=== PATIENT | female | born 1985 | race Caucasian/White ===

== ENCOUNTER 2022-10-09 16:36 | Emergency (ER) | payer SELFPAY ==
[~2022-10-09] VITALS: Ht 157.5 cm; Wt 70.3 kg
[2022-10-09 16:46] VITALS: BP 136/79
--- NOTE | 2022-10-09 19:05 | NUR ---
Patient eloped from facility. ER DR. MONIQUE MAGALLANES notified.
== END 2022-10-09 19:05 | disposition left against medical advice (07) ==
LOC: ER 16:38
DX: Z53.21 Procedure and treatment not carried out due to patient leaving prior to being seen by health care provider (principal)

== ENCOUNTER 2022-12-04 00:46 | Inpatient (IN) | payer MEDICAID ==
[~2022-12-04] VITALS: Ht 157.5 cm; Wt 111.1 kg
[2022-12-04] VITALS (12 sets, daily range): BP systolic 104–137; BP diastolic 60–80
--- NOTE | 2022-12-04 01:05 | NUR ---
[id number] FROM HOME C/O SORE THROAT X45 MINS. PT A/OX4. TOLERATING R/A WELL WITH NO RESP DISTRESS. CONNECTED PT TO POX AND MONITOR.
--- NOTE | 2022-12-04 01:17 | NUR ---
COMMISSIONER PUBLIC WORKS AT PT'S BEDSIDE
[2022-12-04 01:36] LABS: BASOPHILS % (AUTO) 0.4 % (0.0-2.0); LYMPHOCYTES # (AUTO) 0.8 K/uL (0.8-4.8); LYMPHOCYTES % (AUTO) 23.4 % (20.0-44.0); MEAN CORPUSCULAR HGB CONC 27 g/dl (31.0-36.0); MEAN CORPUSCULAR VOLUME 60 fL (82-100); MONOCYTES # (AUTO) 0.3 K/uL (0.1-1.30); MONOCYTES % (AUTO) 7.7 % (2.0-12.0); NEUTROPHILS # (AUTO) 2.4 K/uL (1.8-8.9); NEUTROPHILS % (AUTO) 68.5 % (43.0-81.0); PLATELET COUNT (AUTO) 201 K/uL (150-450); WHITE BLOOD COUNT (AUTO) 3.5 K/uL (4.3-11.0)
[2022-12-04 01:49] LABS: CALCIUM, SERUM 8.6 mg/dL (8.5-10.1); POTASSIUM 3.6 mmol/L (3.5-5.1)
[2022-12-04 01:51] LABS: HEMATOCRIT 18 % (33-45); HEMOGLOBIN 4.8 g/dL (11.5-14.8)
--- NOTE | 2022-12-04 02:10 | NUR ---
COVID ANTIGEN SWAB COLLECTED AND SENT TO LAB
--- NOTE | 2022-12-04 02:10 | NUR ---
BLOOD TRANSFUSION CONSENT FORM SIGNED BY PT; VERBALIZES UNDERSTANDING.
--- NOTE | 2022-12-04 02:13 | NUR ---
LAC #20G S/L BLOOD COLLECTED AND SENT TO LAB
--- NOTE | 2022-12-04 02:18 | NUR ---
URINE COLLECTED AND SENT TO LAB
[2022-12-04] MEDS ORDERED: LIDOCAINE VISCOUS 2% UD 15 ML UDC ONE ×2 (03:47)
[2022-12-04] MEDS ORDERED: LIDOCAINE VISCOUS 2% UD 15 ML UDC MM ONE (04:00)
[2022-12-04] MEDS ORDERED: MAGNESIUM HYDROXIDE 30 ML UDC PO PRN (04:00)
[2022-12-04] MEDS ORDERED: Z GUARD REMEDY 4 OZ OINT TP PRN (04:00)
[2022-12-04] MEDS ORDERED: HYDROCODONE/APAP 10/325MG TABLET PO PRN (04:00)
[2022-12-04] MEDS ORDERED: MAG HYDROX/AL HYDROX/SIMETH 30 ML UDC PO ONE (04:00)
[2022-12-04] MEDS ORDERED: MAG HYDROX/AL HYDROX/SIMETH 30 ML UDC PO PRN (04:00)
[2022-12-04] MEDS ORDERED: TEMAZEPAM 15 MG CAPSULE PO PRN (04:00)
[2022-12-04] MEDS ORDERED: HYDROCODONE/APAP 5/325MG TABLET PO PRN (04:00)
[2022-12-04] MEDS ORDERED: ONDANSETRON HCL/PF 4 MG/2 ML VIAL IVP PRN (04:00)
[2022-12-04] MEDS ORDERED: ACETAMINOPHEN 325 MG TABLET PO PRN (04:00)
--- NOTE | 2022-12-04 05:28 | NUR ---
NORCO 5-325MG PO PRN ADMINISTERED FOR CHEST PAIN. VSS. WILL REASSESS PAIN IN 30 MINUTES.
--- NOTE | 2022-12-04 05:29 | NUR ---
PT AMBULATORY TO RESTROOM WITH STEADY GAIT. ADLS DONE
[2022-12-04 05:47] LABS: EOSINOPHILS % (MANUAL) 1 % (0-4); LYMPHOCYTES % (MANUAL) 21 % (16-48); MONOCYTES % (MANUAL) 7 % (0-11.0); NEUTROPHILS % (MANUAL) 71 (42-76)
--- NOTE | 2022-12-04 06:14 | NUR ---
PROVIDED PT WITH SNACKS; TOLERATING WELL
[2022-12-04] MEDS ORDERED: PANTOPRAZOLE 40 MG TABLET.DR PO SCH (07:30)
[2022-12-04] MEDS ORDERED: PANTOPRAZOLE 40 MG TABLET.DR PO ONE (07:56)
--- NOTE | 2022-12-04 08:27 | NUR ---
BED 315-1 ADMITTING DEPT NOTIFIED.
--- NOTE | 2022-12-04 08:30 | NUR ---
REPORT GIVEN TO CARMEN RAMIREZ
--- NOTE | 2022-12-04 08:53 | NUR ---
PT TRANSFERRED TO TELE FLOOR WITH ACLS PROTOCOLS IN PLACE.
--- NOTE | 2022-12-04 08:55 | NUR ---
PRODUCTION SPECIALISTCOURIER DELIVERY DRIVER NOTE PT TRANSPORTED TO UNIT AT THIS TIME FROM ER VIA [facility].
--- NOTE | 2022-12-04 09:00 | NUR ---
LINEN CONTROLLERDOBBY LOOM WEAVER NOTE PT ADMITTED TO TELE FOR ADMITTING DX ANEMIA. PT A/OX4, STABLE ON RA, BREATHING EVEN AND NON LABORED. ABLE TO MAKE NEEDS KNOWN. NO SOB OR S/S OF RESPIRATORY DISTRESS NOTED AT THIS TIME. HGB 4.8 HCT 18, AWAITING BLOOD BANK FOR BLOOD TO TRANSFUSE. PLACED ZONE SUPERVISOR FIREARMS ON PATIENT. READING 92BPM. IV ACCESS L AC #20G, INTACT AND PATENT. SKIN INTACT. VS TAKEN, STABLE AND RECORDED. ORIENTED PT TO UNIT, STAFF, AND ROOM. PT BELONGINGS ACCOUNTED AND BELONGING LIST SIGNED. SAFETY PRECAUTIONS IN PLACE. BED IN LOWEST, LOCKED POSITION. HOB ELEVATED, SIDE RAILS UPX2, CALL LIGHT AND TABLE WITHIN EASY REACH. ALL NEEDS MET AT THIS TIME.
--- NOTE | 2022-12-04 09:50 | NUR ---
RN NOTE STARTED BLOOD TRANSFUSION AT 0920. STAYED WITH PT FOR THE FIRST 30 MINUTES. VS TAKEN BEFORE AND EVERY 15 MINUTES FOR THE FIRST 30 MINUTES. VS STABLE, RECORDED, PT DOES NOT REPORT ANY CHANGES.
[2022-12-04] MEDS: PANTOPRAZOLE 40 MG VIAL IV SCH ×2 (11:33→16:18)
[2022-12-04 12:02] LABS: IRON, SERUM 9 ug/dl (50-175); TOTAL IRON BINDING CAPACITY 405 ug/dl (250-450)
--- NOTE | 2022-12-04 13:00 | NUR ---
RN NOTE STARTED SECOND BLOOD TRANSFUSION AT 1300. STAYED WITH PT FOR THE FIRST 30 MINUTES. VS TAKEN BEFORE AND EVERY 15 MINUTES FOR THE FIRST 30 MINUTES. VS STABLE, RECORDED, PT DOES NOT REPORT ANY CHANGES.
[2022-12-04 14:16] LABS: FERRITIN 2 ng/mL (8-388)
[2022-12-04] MEDS: SOD FERRIC GLUC 125 MG in IV NS 0.9% 100 ML IV SCH (17:03)
--- NOTE | 2022-12-04 17:03 | NUR ---
RN NOTE LATE ADMINISTERED FERRLECIT 125 MG DUE TO BLOOD ADMINISTRATION.
--- NOTE | 2022-12-04 18:43 | NUR ---
LUBRICATION WORKER CLOSING NOTE PT SLEEPING IN BED, EASILY BEING AWAKENED, A/OX4, ABLE TO MAKE NEEDS KNOWN. PT IS ON RA BREATHING EVEN AND NON LABORED. IV ACCESS LAC #20G, INTACT AND PATENT, SL. PT RECEIVED 2 PRBC DURING THE SHIFT, TOLERATED WELL. PRESCRIBED MEDS GIVEN. PT IS ON EXTERNAL FANCY WIRE DRAWER READING SR @94BPM. SAFETY PRECAUTIONS MAINTAINED. BED IN LOWEST LOCKED POSITION, HOB ELEVATED, SIDE RAILS UP X2, CALL LIGHT AND TABLE WITHIN REACH. WILL ENDORSE RIGHT OF WAY AGENT FOR JOSE MANUEL.
--- NOTE | 2022-12-04 19:30 | NUR ---
WATERFRONT DIRECTOR OPENING NOTE RECEIVED PT SLEEPING IN BED, EASILY AROUSABLE, HOB ELEVATED. A/OX3, ABLE TO MAKE NEEDS KNOWN, VERY SLEEPY. ON RA BREATHING EVEN AND NON LABORED. IV ACCESS LAC #20G, INTACT AND PATENT, SL. PT RECEIVED 2 PRBC DURING DAY SHIFT, TOLERATED WELL PER ENDORSEMENT. ON EXTERNAL KITCHEN HAND READING SR @ 98BPM. SAFETY PRECAUTIONS IN PLACE: BED LOCKED AND IN LOWEST LOCKED POSITION, SIDE RAILS UP X3, CALL LIGHT AND TABLE WITHIN REACH. WILL CONTINUE TO MONITOR AND ASSIST.
[2022-12-04 20:51] LABS: HEMOGLOBIN 6.8 g/dL (11.5-14.8)
--- NOTE | 2022-12-04 21:04 | NUR ---
RN NOTE CRITICAL LAB VALUE REPORT: 6.8 HGB, [address] SHEIKH INFORMED AND ORDERED TRANSFUSION OF 1 PACKED RBC. ORDER PLACED PRESCRIBED. BLOOD BANK NOTIFIED.
[2022-12-05] VITALS (11 sets, daily range): BP systolic 112–131; BP diastolic 63–87
--- NOTE | 2022-12-05 00:56 | NUR ---
RN NOTE BLOOD TRANSFUSION OF 1 PRBC STARTED AT 0056. PT RESTING IN BED AT THIS TIME, EASILY AROUSABLE. NO TRANSFUSION REACTIONS NOTED AT THIS TIME. WILL MONITOR VITAL SIGNS AFTER 15 MINS. Addendum: 12/05/22 at 0115 by PIO DING RN RATE STARTED AT 60 ML/HR.
--- NOTE | 2022-12-05 01:11 | NUR ---
RN NOTE PT VITALS STABLE AFTER 15 MINS OF BLOOD TRANSFUSION. NO REACTIONS NOTED AT THIS TIME. RATE INCREASED TO 120 ML/HR. WILL KEEP MONITORING PT.
--- NOTE | 2022-12-05 01:26 | NUR ---
RN NOTE PT VITALS STABLE AND DOCUMENTED. NO TRANSFUSION REACTIONS NOTED AT THIS TIME.
--- NOTE | 2022-12-05 02:56 | NUR ---
RN NOTE PT VITALS STABLE AND DOCUMENTED. STILL NO TRANSFUSION REACTIONS NOTED AT THIS TIME.
--- NOTE | 2022-12-05 03:48 | NUR ---
RN NOTE BLOOD TRANSFUSION FINISHED AT 0348. NO TRANSFUSION REACTIONS NOTED. VITAL SIGNS STABLE. WILL CONTINUE TO MONITOR.
--- NOTE | 2022-12-05 06:53 | NUR ---
CONTROL SYSTEMS TECHNICIAN CLOSING NOTE PT SLEEPING IN BED, EASILY AROUSABLE, HOB ELEVATED. A/OX3, ABLE TO MAKE NEEDS KNOWN, VERY SLEEPY. STABLE ON RA BREATHING EVEN AND NON LABORED. IV ACCESS LAC #20G, INTACT AND PATENT, SL. PT RECEIVED 1 PRBC DURING SHIFT, TOLERATED WELL. ON EXTERNAL WELLNESS DIRECTOR READING SR @ 90 BPM. ALL CARE PROVIDED AND MEDS TOLERATED WELL. SAFETY PRECAUTIONS MAINTAINED: BED LOCKED AND IN LOWEST LOCKED POSITION, SIDE RAILS UP X3, CALL LIGHT AND TABLE WITHIN REACH. WILL ENDORSE JOSE MANUEL TO DAY SHIFT NURSE.
[2022-12-05 07:08] LABS: BASOPHILS % (AUTO) 0.4 % (0.0-2.0); HEMATOCRIT 26 % (33-45); HEMOGLOBIN 7.9 g/dL (11.5-14.8); LYMPHOCYTES # (AUTO) 0.7 K/uL (0.8-4.8); LYMPHOCYTES % (AUTO) 15.6 % (20.0-44.0); MEAN CORPUSCULAR HGB CONC 30 g/dl (31.0-36.0); MEAN CORPUSCULAR VOLUME 67 fL (82-100); MONOCYTES # (AUTO) 0.3 K/uL (0.1-1.30); MONOCYTES % (AUTO) 6.8 % (2.0-12.0); NEUTROPHILS # (AUTO) 3.5 K/uL (1.8-8.9); NEUTROPHILS % (AUTO) 77.2 % (43.0-81.0); PLATELET COUNT (AUTO) 186 K/uL (150-450); RED BLOOD CELL COUNT(AUTO) 3.92 MIL/uL (4.0-5.2); WHITE BLOOD COUNT (AUTO) 4.6 K/uL (4.3-11.0)
[2022-12-05 07:11] LABS: CALCIUM, SERUM 8.3 mg/dL (8.5-10.1); CREATININE 0.6 mg/dL (0.6-1.3); PHOSPHORUS 3.6 mg/dL (2.5-4.9); POTASSIUM 3.6 mmol/L (3.5-5.1)
--- NOTE | 2022-12-05 07:15 | NUR ---
PHOTOGRAPHER HELPER OPENING NOTE RECEIVED PT SLEEPING IN BED, EASILY AROUSABLE, HOB ELEVATED. A/OX3, ABLE TO MAKE NEEDS KNOWN. ON RA BREATHING EVEN AND NON LABORED. IV ACCESS LAC #20G, INTACT AND PATENT, SL. PT RECEIVED 1 PRBC PER CHEMISTRY LECTURER NURSE, TOLERATED WELL PER ENDORSEMENT. ON EXTERNAL NUT ROASTER READING SR @ 90BPM. SAFETY PRECAUTIONS IN PLACE: BED LOCKED AND IN LOWEST LOCKED POSITION, SIDE RAILS UP X3, CALL LIGHT AND TABLE WITHIN REACH. WILL CONTINUE TO MONITOR THE PATIENT FOR JOSE MANUEL
[2022-12-05] MEDS: PANTOPRAZOLE 40 MG VIAL IV SCH ×2 (09:20→16:30)
[2022-12-05 09:30] LABS: HEMOGLOBIN 7.8 g/dL (11.5-14.8)
[2022-12-05] MEDS: SOD FERRIC GLUC 125 MG in IV NS 0.9% 100 ML IV SCH (15:38)
[2022-12-05 16:01] LABS: BAND % (MANUAL) 1 % (0.0-5.0); LYMPHOCYTES % (MANUAL) 17 % (16-48); MONOCYTES % (MANUAL) 4 % (0-11.0); NEUTROPHILS % (MANUAL) 78 (42-76)
[2022-12-05 16:19] LABS: HEMOGLOBIN 7.8 g/dL (11.5-14.8)
--- NOTE | 2022-12-05 18:04 | NUR ---
Patient awake, still awaiting bowel movement for occult blood sample
--- NOTE | 2022-12-05 18:45 | NUR ---
FOOD PROCESSOR CLOSING NOTE PT IN BED, INTERMITTENTLY FALLING ASLEEP BUT EASILY AROUSABLE, HOB ELEVATED. A/OX3, ABLE TO MAKE NEEDS KNOWN. STABLE ON RA BREATHING EVEN AND NON LABORED. IV ACCESS LAC #20G, INTACT AND PATENT, SL. PT STILL WAITING FOR HER BOWEL MOVEMENT TO PROGRESS FOR OCCULT STOOL SAMPLE. ON EXTERNAL PRESS TENDER INCENDIARY GRENADE READING SR @ 91 BPM. ALL CARE PROVIDED AND MEDS TOLERATED WELL. SAFETY PRECAUTIONS MAINTAINED: BED LOCKED AND IN LOWEST LOCKED POSITION, SIDE RAILS UP X3, CALL LIGHT AND TABLE WITHIN REACH. WILL ENDORSE JOSE MANUEL TO PM SHIFT NURSE.
--- NOTE | 2022-12-05 19:45 | NUR ---
ARTIFICIAL BREEDING TECHNICIAN NOTES SR-81 ON TELE MONITOR.LAYING ON BED,A/O X4,BREATHING EASY,NO SOB,AMBULATE WITH STEADY GAIT,VERY NEEDY,ALWAYS ASKING FOR FOOD.SALINE LOCK LEFT AC INTACT AND PATENT.CALL LIGHT IN REACH,NEEDS ANTICIPATED.
--- NOTE | 2022-12-05 22:27 | NUR ---
SECURITY OPERATIONS ENGINEER NOTES C/O INSOMNIA,RESTORIL 15MG PO GIVEN PER PATIENT REQUEST AND ORDERED.WILL MONITOR HOURS OF SLEEP.
[2022-12-06] VITALS: BP 115/72
[2022-12-06 04:00] VITALS: BP 110/64
[2022-12-06 06:26] LABS: BASOPHILS % (AUTO) 0.7 % (0.0-2.0); EOSINOPHILS % (AUTO) 0.1 % (0.0-6.0); HEMATOCRIT 27 % (33-45); LYMPHOCYTES % (AUTO) 22.7 % (20.0-44.0); MEAN CORPUSCULAR HGB CONC 29 g/dl (31.0-36.0); MEAN CORPUSCULAR VOLUME 69 fL (82-100); MONOCYTES # (AUTO) 0.3 K/uL (0.1-1.30); MONOCYTES % (AUTO) 6.7 % (2.0-12.0); NEUTROPHILS % (AUTO) 69.8 % (43.0-81.0); PLATELET COUNT (AUTO) 200 K/uL (150-450); RED BLOOD CELL COUNT(AUTO) 3.95 MIL/uL (4.0-5.2); WHITE BLOOD COUNT (AUTO) 4.3 K/uL (4.3-11.0)
--- NOTE | 2022-12-06 06:57 | NUR ---
NEWS VIDEOGRAPHER NOTES NO SIGNIFICANT CHANGE IN STATUS.SLEEP WELL WITH RESTORIL.NO DISTRESS.WILL ENDORSE TO DAY NURSE FOR JOSE MANUEL.
--- NOTE | 2022-12-06 07:30 | NUR ---
RN OPENING NOTE RECEIVED PATIENT IN BED, AWAKE A/O X4, VERBALLY RESPONSIVE AND ABLE TO MAKE NEEDS KNOWN. NO SIGNS OF ACUTE DISTRESS NOTED. ON ROOM AIR, TOLERATING WELL. NO SOB NOTED, BREATHING EVEN AND UNLABORED. NOTED WITH IV ACCESS ON LEFT AC #20G, INTACT AND PATENT, FLUSHES WELL AND SALINE LOCKED. ON MEDIC TECHNICIAN SHOWING SINUS RHYTHM HR @91. DENIES ANY PAIN OR DISCOMFORT AT THIS TIME. SAFETY MEASURE IN PLACE. BED IN LOW AND LOCKED POSITION, SIDE RAILS UP X2, CALL LIGHT PLACED WITHIN EASY REACH. WILL CONTINUE TO MONITOR PATIENT.
[2022-12-06 07:39] LABS: ALBUMIN 2.9 g/dL (3.4-5.0); CALCIUM, SERUM 8.7 mg/dL (8.5-10.1); CREATININE 0.7 mg/dL (0.6-1.3); POTASSIUM 3.4 mmol/L (3.5-5.1); TOTAL PROTEIN, SERUM 6.9 g/dL (6.4-8.2)
[2022-12-06 08:00] VITALS: BP_SYST 121; BP_SYST 134; BP_DIAS 73; BP_DIAS 90
[2022-12-06] MEDS: PANTOPRAZOLE 40 MG VIAL IV SCH (08:24)
[2022-12-06] MEDS ORDERED: POTASSIUM CHLORIDE 20 MEQ TAB.PRT.SR PO SCH (09:30)
[2022-12-06 09:42] LABS: HEMOGLOBIN 8.1 g/dL (11.5-14.8)
[2022-12-06] MEDS ORDERED: PANT40TA2 PO (11:50)
--- NOTE | 2022-12-06 13:02 | NUR ---
PUBLICATION DESIGNER NOTE PATIENT DISCHARGED HOME IN STABLE CONDITION. PATIENT REMAINS AWAKE, A/O X4, VERBALLY RESPONSIVE, NO SIGNS OF ACUTE DISTRESS. IV ACCESS REMOVED, NO BLEEDING NOTED, PRESSURE DRESSING APPLIED TO SITE. ARM NAME BAND REMOVED. EXITCARE FOLDER GIVEN TO PATIENT. DISCHARGE INSTRUCTIONS PROVIDED WITH VERBALIZATION OF UNDERSTANDING. PATIENT LEFT UNIT @1300 AMBULATORY. PATIENT PICKED UP BY MOTHER VIA PRIVATE CAR.
== END 2022-12-06 13:00 | disposition home or self-care (01) | DRG 241 ==
LOC: ER 00:47 → TRANSITION 05:21 → TELE 08:41
PROVIDERS: ADMIT Internal Medicine; ATTEND Nurse Practitioner Acute Care
PROC: 30233N1 Transfusion of Nonautologous Red Blood Cells into Peripheral Vein, Percutaneous Approach (ICD-10-PCS; principal; 2022-12-04)
DX: K25.4 Chronic or unspecified gastric ulcer with hemorrhage (principal); D50.0 Iron deficiency anemia secondary to blood loss (chronic); K21.9 Gastro-esophageal reflux disease without esophagitis; D72.819 Decreased white blood cell count, unspecified; F20.9 Schizophrenia, unspecified; Z20.822 Contact with and (suspected) exposure to COVID-19; Z87.11 Personal history of peptic ulcer disease
CPT/HCPCS: 36415; 71045-TC; 76856-TC; 80048-TC; 80053-TC; 82728-TC; 83540-TC; 83735-TC; 84100-TC; 84703-TC; 85025-TC; 85027-TC; 86850-TC; 87081-TC; A4223; C9113; C9803; G0378; J2405; J2916; J7030; J7050; J7060; P9016

== ENCOUNTER 2023-11-07 13:56 | Inpatient (IN) | payer MEDICAID, OTHER ==
[~2023-11-07] VITALS: Ht 157.5 cm; Wt 120.2 kg
[~2023-11-07 13:56] MED LIST: PANT40TA2 PO
[2023-11-07 17:20] LABS: APPEARANCE,URINE SLIGHTLY CLOUDY (CLEAR); BILIRUBIN,URINE NEGATIVE (NEGATIVE); BLOOD, URINE NEGATIVE Ery/uL (NEGATIVE); COLOR,URINE YELLOW (YELLOW); KETONES,URINE NEGATIVE (NEGATIVE); LEUKOCYTE ESTERASE ,URINE 2+ (NEGATIVE); NITRITE, URINE POSITIVE (NEGATIVE); PROTEIN,URINE NEGATIVE (NEGATIVE); UGLUCOSE NEGATIVE (NEGATIVE); UROBILINOGEN,URINE 0.2 EU/dL (0.2)
[2023-11-07 17:22] LABS: PREGNANCY TEST URINE QUAL NEGATIVE (NEGATIVE)
[2023-11-07 17:50] LABS: BASOPHILS % (AUTO) 0.3 % (0.0-2.0); HEMATOCRIT 21 % (33-45); LYMPHOCYTES # (AUTO) 1.5 K/uL (0.8-4.8); LYMPHOCYTES % (AUTO) 54.4 % (20.0-44.0); MEAN CORPUSCULAR HEMOGLOBIN 16 PG (26.0-33.0); MEAN CORPUSCULAR HGB CONC 28 g/dl (31.0-36.0); MEAN CORPUSCULAR VOLUME 57 fL (82-100); MONOCYTES # (AUTO) 0.1 K/uL (0.1-1.30); MONOCYTES % (AUTO) 3.5 % (2.0-12.0); NEUTROPHILS # (AUTO) 1.1 K/uL (1.8-8.9); NEUTROPHILS % (AUTO) 41.8 % (43.0-81.0); PLATELET COUNT (AUTO) 119 K/uL (150-450); RED BLOOD CELL COUNT(AUTO) 3.77 MIL/uL (4.0-5.2); RED CELL DISTRIBUTION WIDTH 21.7 % (11.5-15.0); WHITE BLOOD COUNT (AUTO) 2.7 K/uL (4.3-11.0)
[2023-11-07 17:52] LABS: ADD URINE CULTURE YES; BACTERIA,URINE 3+ /HPF (None Seen); RBC,URINE 0-2 /HPF (0-2)
[2023-11-07 17:57] LABS: HEMOGLOBIN 5.9 g/dL (11.5-14.8)
[2023-11-07 18:09] LABS: CALCIUM, SERUM 8.8 mg/dL (8.5-10.1); CREATININE 0.6 mg/dL (0.6-1.3); POTASSIUM 3.7 mmol/L (3.5-5.1)
[2023-11-07 18:53] LABS: ANISOCYTOSIS 1+; HYPOCHROMASIA 3+; LYMPHOCYTES % (MANUAL) 36 % (16-48); MONOCYTES % (MANUAL) 5 % (0-11.0); NEUTROPHILS % (MANUAL) 59 (42-76); PLATELET ESTIMATE DECREASED
[2023-11-07] MEDS ORDERED: NITROFURANTOIN/MONOHYDRATE MACROCRYSTALS 100 MG CAPSULE ONE (18:57)
[2023-11-07] MEDS: NITROFURANTOIN/MONOHYDRATE MACROCRYSTALS 100 MG CAPSULE PO ONE (19:07)
[2023-11-07] MEDS ORDERED: MAGNESIUM HYDROXIDE 30 ML UDC PO PRN (22:00)
[2023-11-07] MEDS ORDERED: MAG HYDROX/AL HYDROX/SIMETH 30 ML UDC PO PRN (22:00)
[2023-11-07] MEDS ORDERED: Z GUARD REMEDY 4 OZ OINT TP PRN (22:00)
[2023-11-07] MEDS ORDERED: ONDANSETRON HCL/PF 4 MG/2 ML VIAL IVP PRN (22:00)
[2023-11-07] MEDS ORDERED: ZOLPIDEM TARTRATE 5 MG TABLET PO PRN (22:00)
[2023-11-07] MEDS ORDERED: ACETAMINOPHEN 325 MG TABLET PO PRN (22:00)
[2023-11-07 23:00] VITALS: BP 116/80; TEMP 98; O2SAT 100
[2023-11-07] MEDS ORDERED: CEFTRIAXONE 1GM BAG (ER ONLY) 50 ML IV ONE (23:31)
[2023-11-07] MEDS: CEFTRIAXONE 1 G in IV D5W 50 ML IV SCH (23:39)
[2023-11-07] MEDS: IV NS 0.9% 1,000 ML IV PRN (23:41)
[2023-11-08] VITALS (9 sets, daily range): BP systolic 114–125; BP diastolic 61–88; TEMP 97.7–98.6; O2SAT 95–100
[2023-11-08 07:33] LABS: BASOPHILS % (AUTO) 0.7 % (0.0-2.0); HEMATOCRIT 24 % (33-45); LYMPHOCYTES # (AUTO) 1.1 K/uL (0.8-4.8); LYMPHOCYTES % (AUTO) 37.5 % (20.0-44.0); MEAN CORPUSCULAR HEMOGLOBIN 17 PG (26.0-33.0); MEAN CORPUSCULAR HGB CONC 28 g/dl (31.0-36.0); MEAN CORPUSCULAR VOLUME 61 fL (82-100); MONOCYTES # (AUTO) 0.2 K/uL (0.1-1.30); NEUTROPHILS # (AUTO) 1.6 K/uL (1.8-8.9); NEUTROPHILS % (AUTO) 55.8 % (43.0-81.0); PLATELET COUNT (AUTO) 113 K/uL (150-450); RED BLOOD CELL COUNT(AUTO) 3.87 MIL/uL (4.0-5.2); RED CELL DISTRIBUTION WIDTH 27.2 % (11.5-15.0); WHITE BLOOD COUNT (AUTO) 2.9 K/uL (4.3-11.0)
[2023-11-08 07:47] LABS: HEMOGLOBIN 6.7 g/dL (11.5-14.8)
[2023-11-08 07:48] LABS: CALCIUM, SERUM 8.7 mg/dL (8.5-10.1); CREATININE 0.6 mg/dL (0.6-1.3); MAGNESIUM 2.1 mg/dL (1.8-2.4); PHOSPHORUS 3.8 mg/dL (2.5-4.9); POTASSIUM 3.7 mmol/L (3.5-5.1); TOTAL PROTEIN, SERUM 6.7 g/dL (6.4-8.2)
[2023-11-08 08:58] LABS: IRON, SERUM 13 ug/dl (50-175); TOTAL IRON BINDING CAPACITY 450 ug/dl (250-450)
[2023-11-08] MEDS: PANTOPRAZOLE 40 MG VIAL IV SCH (09:14)
[2023-11-08 09:16] LABS: FERRITIN 4 ng/mL (8-388)
[2023-11-08 10:04] LABS: EOSINOPHILS % (MANUAL) 1 % (0-4); LYMPHOCYTES % (MANUAL) 28 % (16-48); MONOCYTES % (MANUAL) 5 % (0-11.0); NEUTROPHILS % (MANUAL) 66 (42-76)
[2023-11-08 10:05] LABS: ANISOCYTOSIS 2+; HYPOCHROMASIA 2+; PLATELET ESTIMATE DECREASED
[2023-11-08] MEDS: SOD FERRIC GLUC 125 MG in IV NS 0.9% 100 ML IV SCH (14:39)
[2023-11-09] VITALS: BP 123/59; TEMP 98.6; O2SAT 100
[2023-11-09 04:00] VITALS: BP 122/73; TEMP 98.4; O2SAT 100
[2023-11-09 07:50] LABS: BASOPHILS % (AUTO) 0.6 % (0.0-2.0); HEMATOCRIT 27 % (33-45); HEMOGLOBIN 7.9 g/dL (11.5-14.8); LYMPHOCYTES # (AUTO) 1.1 K/uL (0.8-4.8); LYMPHOCYTES % (AUTO) 39.2 % (20.0-44.0); MEAN CORPUSCULAR HEMOGLOBIN 19 PG (26.0-33.0); MEAN CORPUSCULAR HGB CONC 29 g/dl (31.0-36.0); MEAN CORPUSCULAR VOLUME 64 fL (82-100); MONOCYTES # (AUTO) 0.2 K/uL (0.1-1.30); MONOCYTES % (AUTO) 6.2 % (2.0-12.0); NEUTROPHILS # (AUTO) 1.5 K/uL (1.8-8.9); PLATELET COUNT (AUTO) 98 K/uL (150-450); RED BLOOD CELL COUNT(AUTO) 4.26 MIL/uL (4.0-5.2); RED CELL DISTRIBUTION WIDTH 28.8 % (11.5-15.0); WHITE BLOOD COUNT (AUTO) 2.8 K/uL (4.3-11.0)
[2023-11-09 08:00] VITALS: BP 137/73; TEMP 98.6; O2SAT 99
[2023-11-09 08:09] LABS: CALCIUM, SERUM 8.6 mg/dL (8.5-10.1); CREATININE 0.6 mg/dL (0.6-1.3); MAGNESIUM 2.1 mg/dL (1.8-2.4); PHOSPHORUS 4.1 mg/dL (2.5-4.9); POTASSIUM 3.7 mmol/L (3.5-5.1)
[2023-11-09] MEDS ORDERED: FERR325T23 PO (11:27)
[2023-11-09] MEDS ORDERED: ASCO-373 PO (11:27)
[2023-11-09 12:31] LABS: ANISOCYTOSIS 1+; BASOPHILS % (MANUAL) 0 % (0.0-2.0); EOSINOPHILS % (MANUAL) 2 % (0-4); HYPOCHROMASIA 2+; LYMPHOCYTES % (MANUAL) 29 % (16-48); MONOCYTES % (MANUAL) 8 % (0-11.0); NEUTROPHILS % (MANUAL) 61 (42-76); OVALOCYTES 1+; PLATELET ESTIMATE DECREASED
[2023-11-09 14:42] VITALS: BP 137/73; TEMP 98.6; O2SAT 99
[2023-11-09] MEDS ORDERED: PANTOPRAZOLE 40 MG TABLET.DR PO SCH (21:00)
== END 2023-11-09 17:35 | DRG 663 ==
LOC: ER 14:03 → TELE1 22:17 → MEDSG1 11-09 10:50
PROVIDERS: ADMIT Nurse Practitioner Acute Care; ATTEND Nurse Practitioner Family
PROC: 30233N1 Transfusion of Nonautologous Red Blood Cells into Peripheral Vein, Percutaneous Approach (ICD-10-PCS; principal; 2023-11-07)
DX: D50.9 Iron deficiency anemia, unspecified (principal); D61.818 Other pancytopenia; E44.0 Moderate protein-calorie malnutrition; N39.0 Urinary tract infection, site not specified; E66.9 Obesity, unspecified; Z68.41 Body mass index [BMI] 40.0-44.9, adult; E88.09 Other disorders of plasma-protein metabolism, not elsewhere classified; F20.9 Schizophrenia, unspecified; K21.9 Gastro-esophageal reflux disease without esophagitis; R53.1 Weakness; B96.20 Unspecified Escherichia coli [E. coli] as the cause of diseases classified elsewhere; Z71.3 Dietary counseling and surveillance
CPT/HCPCS: 36415; 71045-TC; 80048-TC; 80053-TC; 81001; 82728-TC; 83540-TC; 83735-TC; 84100-TC; 84703-TC; 85025-TC; 85027-TC; 86850-TC; 87086-TC; A4223; C9113; G0378; J0696; J2916; J7030; J7050; J7060; P9016